=== PATIENT | female | born 1975 | race Caucasian/White ===

== ENCOUNTER 2016-07-21 10:04 | Day surgery (SDC) | payer BC, OTHER ==
[2016-07-21] MEDS ORDERED: ONDANSETRON HCL INJ/PF 4 MG/2 ML SDV ONE (10:44)
[2016-07-21] MEDS ORDERED: NALOXONE HCL INJ/PF 0.4 MG/1 ML SDV ONE (10:44)
[2016-07-21] MEDS ORDERED: EPINEPHRINE INJ 1 MG/10 ML DISP.SYRIN ONE (10:45)
[2016-07-21] MEDS ORDERED: FLUMAZENIL INJ 0.5 MG/5 ML VIAL IV ONE (10:45)
[2016-07-21] MEDS ORDERED: GLUCAGON,HUMAN RECOMB 1 MG INJ ONE (10:45)
[2016-07-21] MEDS: DIPHENHYDRAMINE HCL 50 MG/ML VIAL ONE ×2 (10:50→10:52)
[2016-07-21] MEDS: MIDAZOLAM 2 MG/2 ML INJ ONE ×5 (10:52→11:02)
[2016-07-21] MEDS: FENTANYL CITRATE INJ/PF 100 MCG/2 ML AMPUL ONE ×3 (10:56→11:05)
--- NOTE | 2016-07-21 11:22 | Operative Report ---
Operative Report DATE OF SURGERY: 07/21/16 Operative Report: The risks, benefits and alternatives of the procedure including risks of bleeding, perforation requiring surgery are explained to the patient detail and informed consent was obtained. Patient was placed in the left, lateral decubital position. Timeout was called. Conscious sedation medications are provided. A rectal examination was done which did not reveal any masses, tears or fissures. An Olympus endoscope was inserted into the patient's rectum. It is carefully guided and advanced to the cecum. The cecum was identified by the usual anatomical landmarks of the ileocecal valve as well as the appendiceal office. Photodocumentation was obtained. Prep is good. The scope was then sequentially pulled back via the rest segments of the colon including the ascending colon, hepatic flexure, transverse colon, splenic flexure, descending colon finding to the rectosigmoid portions of the colon. Retroflexion maneuver was performed. PREOPERATIVE DIAGNOSIS: Abdominal pain, blood in stool POSTOPERATIVE DIAGNOSIS: Colitis throughout the colon suspicious for ulcerative colitis status post biopsy, mild stricturing noted in the sigmoid OPERATION: Colonoscopy with biopsy SURGEON: HERNANDO AKINS ANESTHESIA: Moderate Sedation - 25 mg of Benadryl, 6 mg of Versed, 100 mcg of fentanyl. Conscious sedation monitoring time 30 minutes. TISSUE REMOVED OR ALTERED: Multiple random biopsies obtained in the colon COMPLICATIONS: None. ESTIMATED BLOOD LOSS: None. INTRAOPERATIVE FINDINGS: As described above. No masses, AVMs, diverticulosis noted. PROCEDURE: Patient tolerated procedure well. No immediate postprocedure complications are noted. Patient discharged in good condition. Discharge date 07/21/2016. Discharge diet: Regular. Discharge activity: Regular. 2-3 week follow-up to discuss findings. Patient is instructed to call the office or proceed to the emergency room should there be any further problems or questions We will wait on biopsies. Surveillance colonoscopy next year.
[2016-07-21 12:18] VITALS: BP 121/76
== END 2016-07-21 12:20 | disposition home or self-care (01) ==
LOC: END 10:04
PROVIDERS: ATTEND Internal Medicine Gastroenterology
PROC: 0DBE8ZX Excision of Large Intestine, Via Natural or Artificial Opening Endoscopic, Diagnostic (ICD-10-PCS; principal; 2016-07-21 10:30)
DX: K52.9 Noninfective gastroenteritis and colitis, unspecified (principal); K56.60 Unspecified intestinal obstruction; K62.5 Hemorrhage of anus and rectum; E03.9 Hypothyroidism, unspecified; I10 Essential (primary) hypertension; J45.909 Unspecified asthma, uncomplicated; E06.3 Autoimmune thyroiditis; Z79.51 Long term (current) use of inhaled steroids; Z79.899 Other long term (current) drug therapy
CPT/HCPCS: 45380; 88305 ×2; J2250; J1200; J3010; J0171; J1610; J2310; J2405; J3490

== ENCOUNTER 2017-01-29 07:22 | Day surgery (SDC) | payer BC, OTHER ==
[2017-01-29] MEDS ORDERED: PROPOFOL INJ 200 MG/20 ML VIAL IV ONE ×2 (09:52→10:55)
[2017-01-29] MEDS ORDERED: MEPERIDINE HCL/PF INJ 25 MG/1 ML DISP.SYRIN IV PRN (10:21)
[2017-01-29] MEDS ORDERED: DIPHENHYDRAMINE HCL 50 MG/ML VIAL IV PRN (10:21)
[2017-01-29] MEDS ORDERED: PROMETHAZINE HCL INJ 25 MG/1 ML VIAL IV PRN ×3 (10:21→11:00)
[2017-01-29] MEDS ORDERED: DEXTROSE 5%-1/2 NORMAL SALINE 1,000 ML IV PRN (10:53)
[2017-01-29] MEDS ORDERED: ACETAMINOPHEN 325 MG TABLET PO PRN (10:54)
[2017-01-29] MEDS ORDERED: SIMETHICONE 80 MG TAB.CHEW PO PRN (10:58)
[2017-01-29 12:06] VITALS: BP 156/92
--- NOTE | 2017-01-29 12:39 | Operative Report ---
Operative Report DATE OF SURGERY: 01/29/17 Operative Report: The risks, benefits and alternatives of the procedure including risks of bleeding, perforation requiring surgery are explained to the patient detail and informed consent was obtained. Patient was taken back to the operating room and placed in the left, lateral decubital position. Timeout was called. Propofol medications administered. A rectal examination is done which did not reveal any masses, tears or fissures. An Olympus videoscope was inserted into the patient's rectum. It is carefully advanced all the way to the cecum. The cecum was identified by the usual anatomical landmarks including the ileocecal valve as well as the appendiceal office. Photodocumentation is obtained. Scope was then sequentially pulled back via the various segments of the colon including the ascending colon, hepatic flexure, transverse colon, splenic flexure, descending colon went to the rectosigmoid portions of the colon. Retroflexion maneuvers performed. PREOPERATIVE DIAGNOSIS: Follow-up on colitis. Colorectal cancer screening POSTOPERATIVE DIAGNOSIS: Mild right-sided inflammation status post biopsy. Mild internal hemorrhoids OPERATION: Colonoscopy with biopsy SURGEON: HERNANDO AKINS ANESTHESIA: LMAC TISSUE REMOVED OR ALTERED: As noted above. COMPLICATIONS: None. ESTIMATED BLOOD LOSS: None. INTRAOPERATIVE FINDINGS: As noted above. PROCEDURE: Patient tolerated the procedure well. No immediate postprocedure complications are noted. Patient discharged in good condition. Discharge date 01/29/2017. Discharge diet: Regular. Discharge activity: Regular. 2-3 week follow-up to discuss findings. We will wait and pathology. Patient is instructed call the office or proceed to the emergency room should there be any further problems or questions. 5 year surveillance colonoscopy.
== END 2017-01-29 12:05 | disposition home or self-care (01) ==
LOC: OROUT 07:22
PROVIDERS: ATTEND Internal Medicine Gastroenterology
PROC: 0DBF8ZX Excision of Right Large Intestine, Via Natural or Artificial Opening Endoscopic, Diagnostic (ICD-10-PCS; principal; 2017-01-29 09:00)
DX: Z12.11 Encounter for screening for malignant neoplasm of colon (principal); Z88.3 Allergy status to other anti-infective agents; K52.9 Noninfective gastroenteritis and colitis, unspecified; K64.8 Other hemorrhoids; Z09 Encounter for follow-up examination after completed treatment for conditions other than malignant neoplasm; Z87.19 Personal history of other diseases of the digestive system; J45.909 Unspecified asthma, uncomplicated; E06.3 Autoimmune thyroiditis; Z79.899 Other long term (current) drug therapy; Z91.040 Latex allergy status
CPT/HCPCS: 45380; 81025; 88305 ×2; J2704; 810

== ENCOUNTER 2017-02-10 08:56 | Day surgery (SDC) | payer BC ==
[~2017-02-10 08:56] MED LIST: PROPOFOL INJ 200 MG/20 ML VIAL IV ONE
[2017-02-10 10:57] VITALS: BP 138/88
--- NOTE | 2017-02-10 11:36 | Operative Report ---
Operative Report DATE OF SURGERY: 02/10/17 Operative Report: The risks benefits and alternatives of the procedure explained to the patient in detail and informed consent is obtained.A GIF Olympus video scope was inserted into the patient's mouth and hypopharynx, the esophagus is identified intubated and insufflated, the scope was then advanced through the esophagus stomach and duodenum, retroflexion maneuver is done, the esophagus stomach and first and second portions of the duodenum examined PREOPERATIVE DIAGNOSIS: Gastroesophageal reflux disease POSTOPERATIVE DIAGNOSIS: Esophagitis status post biopsy rule out Solis's esophagus. Gastritis status post biopsy rule out Helicobacter pylori. Duodenitis OPERATION: EGD with biopsy SURGEON: HERNANDO AKINS ANESTHESIA: LMAC TISSUE REMOVED OR ALTERED: As noted above. COMPLICATIONS: None. ESTIMATED BLOOD LOSS: None. INTRAOPERATIVE FINDINGS: As noted above. PROCEDURE: Patient tolerated the procedure well. No immediate postprocedure complications are noted. Patient discharged in good condition. Discharge date 02/10/2017. Discharge diet: Regular. Discharge activity: Regular. 2-3 week follow-up to discuss findings. Patient is instructed call the office or proceed to the emergency room should there be any further problems or questions. We will await pathology.
== END 2017-02-10 10:57 | disposition home or self-care (01) ==
LOC: END 08:56
PROVIDERS: ATTEND Internal Medicine Gastroenterology
PROC: 0DB58ZX Excision of Esophagus, Via Natural or Artificial Opening Endoscopic, Diagnostic (ICD-10-PCS; 2017-02-10)
PROC: 0DB68ZX Excision of Stomach, Via Natural or Artificial Opening Endoscopic, Diagnostic (ICD-10-PCS; principal; 2017-02-10 11:00)
DX: K21.0 Gastro-esophageal reflux disease with esophagitis (principal); K29.50 Unspecified chronic gastritis without bleeding; B96.81 Helicobacter pylori [H. pylori] as the cause of diseases classified elsewhere; K29.80 Duodenitis without bleeding; E66.9 Obesity, unspecified; E03.9 Hypothyroidism, unspecified; I10 Essential (primary) hypertension; J45.909 Unspecified asthma, uncomplicated; E06.3 Autoimmune thyroiditis; Z68.41 Body mass index [BMI] 40.0-44.9, adult; Z79.899 Other long term (current) drug therapy; Z79.51 Long term (current) use of inhaled steroids; Z88.1 Allergy status to other antibiotic agents; Z91.040 Latex allergy status
CPT/HCPCS: 43239; 88342 ×2; 88305 ×2; J2704; 731

== ENCOUNTER 2017-03-13 16:12 | Emergency (ER) | payer BC, OTHER ==
[2017-03-13] MEDS ORDERED: IPRATROPIUM/ALBUTEROL 0.5-2.5 MG/3 ML AMPUL NEB ONE (16:37)
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
[2017-03-13] MEDS ORDERED: PREDNISONE 20 MG TABLET PO ONE (17:09)
[2017-03-13] MEDS ORDERED: ALBUTEROL SULFATE HFA (90 MCG/PUFF) 8 GM MDI (1 MDI/ER DISP) IH PRN (18:54)
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
[2017-03-13 19:31] VITALS: BP 161/96
== END 2017-03-13 19:29 | disposition home or self-care (01) ==
LOC: ER 16:12
DX: T59.811A Toxic effect of smoke, accidental (unintentional), initial encounter (principal); J68.3 Other acute and subacute respiratory conditions due to chemicals, gases, fumes and vapors; R06.02 Shortness of breath; Y92.007 Garden or yard of unspecified non-institutional (private) residence as the place of occurrence of the external cause; Z91.040 Latex allergy status; Z88.3 Allergy status to other anti-infective agents; Z86.14 Personal history of Methicillin resistant Staphylococcus aureus infection
CPT/HCPCS: 94640; 99285; 36415; 82375; 71045; J7512; J3490; J7620